=== PATIENT | male | born 1960 | race Caucasian/White ===

== ENCOUNTER 2018-04-04 12:26 | Inpatient (IN) ==
[2018-04-04] MEDS ORDERED: CeFAZolin Syr 2,000MG/20 ML 2,000 MG/20 ML SYRINGE IVPB ONE (12:54)
[2018-04-04] MEDS ORDERED: Ringers Solution, Lactated 1,000 ML IVC SCH ×2 (13:00→20:12)
[2018-04-04] MEDS ORDERED: Albuterol 2.5 MG/3 ML NEBULIZER ONE (13:10)
--- NOTE | 2018-04-04 13:17 | History & Physical Report ---
Date of Encounter: 04/04/18 Time of Encounter: 13:16 24 Hour HP Update - Instructions Instructions: If the History and Physical is less than 30 days old and was completed prior to A.M. admission and or procedure and has NOT been updated on calendar day of procedure please complete this update prior to performing procedure. - Update Patient reports changes in Medical Condition: No Changes in examination, assessment, or condition: No Changes in Medication: No Preop tests/diagnostics Reviewed: Yes Surgery Remains Indicated: Yes Consent for Planned Operative Procedure(s) Verified: Yes - Pre-Operative Checklist Preoperative Checklist Indicated: No Prophylactic Antibiotic Ordered: Yes Is VTE Prophylaxis Indicated?: Yes
--- NOTE | 2018-04-04 13:17 | Discharge Summary ---
<Mack Trinh - Last Filed: 04/04/18 14:56> Date of Encounter: 04/04/18 - Discharge Diagnosis (1) Arthritis of right hip Priority: Primary Status: Chronic (2) Status post total hip replacement, right Priority: Primary Status: Acute (3) Hypertension Priority: Secondary Status: Chronic Qualifiers: Hypertension type: unspecified Qualified Code(s): I10 - Essential (primary ) hypertension (4) Hyperlipidemia Priority: Secondary Status: Chronic Qualifiers: Hyperlipidemia type: unspecified Qualified Code(s): E78.5 - Hyperlipidemia , unspecified (5) COPD (chronic obstructive pulmonary disease) Priority: Secondary Status: Chronic Qualifiers: COPD type: unspecified COPD Qualified Code(s): J44.9 - Chronic obstructive pulmonary disease, unspecified (6) Tobacco use Priority: Secondary Status: Chronic (7) CVA (cerebral vascular accident) Priority: Secondary Status: Chronic Qualifiers: CVA mechanism: unspecified Qualified Code(s): I63.9 - Cerebral infarction, unspecified - Hospital Course Hospital course: Mr. Dexter is a 57 year old male - Time Spent with Patient Total time spent providing and/or coordinating discharge services: - Discharge Medications Home Medications: ALPRAZolam [Xanax 0.5 MG Tablet] 0.5 mg DAILY 04/04/18 [History] Cholecalciferol (Vitamin D3) [Vitamin D3] 5,000 units DAILY 04/04/18 [History] Clopidogrel [Plavix] 75 mg PO DAILY 04/04/18 [History] Sildenafil Citrate [Viagra] 50 mg PO DAILY 04/04/18 [History] Zolpidem [Ambien] 5 mg DAILY 04/04/18 [History] Allergies/Adverse Reactions: 3 Allergy/AdvReac Type Severity Reaction Status Date / Time No Known Allergies Allergy Verified 04/04/18 13:28 Primary care physician: Christian Berry MD - Patient Status Disposition: Home Health Service Condition: Good - Discharge Instructions Follow Up With: Christian Berry MD [Primary Care Provider] - Mack Trinh MD [Partnered Physician] - 05/01/18 5:20 pm Olivia Linder PAC [Physician Wet Trimmer] - 04/11/18 2:00 pm (also, 04/19/18 @ 10am ) Additional Instructions: Discharge Instructions: Total Hip Replacement Please call [facility] ([phone]), your Primary Care Physician, or report to the Emergency Room if you have any of the following symptoms: Nausea, vomiting, fever greater that 101.5, swelling, chest pain, shortness of breath, increased pain/redness/drainage/odor for your incision site, numbness/ tingling, or any other concerning symptoms. ACTIVITY:Weight-bearing as tolerated for 8 weeks with hip dislocation precautions that physical therapy taught you. You may progress as tolerated under the guidance of your physical therapist. You do not need to sleep with a pillow between your legs. You can also seep on the operative side or on your stomach. Incentive Spirometer 10 times an hour. MEDICATIONS: Upon discharge resume your home medications. Take all the medications as prescribed. Take a stool softener if taking narcotic pain medications. Stool softeners are only effective if you drink enough fluids. Drink 6-8 glass of water or fluids a day, unless this is not allowed for another health problem. Despite using stool softeners, if you haven't had a bowel movement in 3 days, please switch to a gentle laxative. Gentle laxatives are sold over the counter. You should have a bowel movement within 24 hours, if not call the office. You will be discharged from the hospital with a prescription for pain medication. You are encouraged to decrease the use of narcotic pain medication as tolerated. Should you require a refill, please call the office. [facility] prescribes narcotic pain medication for only 4-6 weeks after surgery. If you require pain medication beyond this time period, you may be referred to your Primary Care Physician or to the Pain Clinic for further evaluation. Plan ahead for refills on pain medication as many narcotics either need to be picked up at the office or mailed. It is best to call 48-72 hours in advance of needing a prescription refill so you don't run out of medication. To help control the post-operative pain, you may take NSAIDs (Aleve,Advil, Motrin, ibuprofen, naprosyn) or Tylenol as prescribed on the bottle in addition to the pain medication. ANTICOAGULATION (blood thinners): Continue your Aspirin, Lovenox or Coumadin as prescribed to help prevent a blood clot in the leg or in the lungs. As long as your incision remains dry and you tolerate the NSAIDs (Aleve, Advil, Motrin, Ibuprofen, Naprosyn), it is OK to use the NSAIDS while you are taking your anticoagulation medication. Should your incision start to drain, stop the NSAID and contact our office. Common symptoms of blood clot in the legs include: localized pain, swelling, calf tenderness, redness or discoloration of the skin. Blood clot in the lung symptoms include: shortness of breath, rapid pulse, sweating, and chest pain that worsens with deep breathing, coughing up blood, lightheadedness, feelings of anxiety. If you experience any of these symptoms notify your physician immediately, go to the emergency room, or if having trouble breathing, call 911. WOUND CARE: Leave the dressing on for 7 to 10days. You may change the dressing if it is saturated greater than 50%. Do not get the dressing wet at anytime. Wash your hands with antibacterial soap, rinse and dry prior to any wound care. If you have huber the visiting nurse or rehab facility can remove the stapes 10-14 days after surgery and place steri-strips across the wound. Leave the steri-strips in place until they fall off on their own. You may let water from the shower run on top of the steri-strips. If you do not have a visiting nurse or rehab facility, you will need to return to the office at 10-14 days for the huber to be removed. If you have itching or redness around the dressing call the office. FOLLOW-UP: Please follow up with your surgeon in the orthopedic clinic in 6 weeks from the day of surgery. If you have huber that need to be removed, you will need to come back to the office in 10-14 days from the day of surgery. <Domonique Cortez - Last Filed: 04/08/18 08:21> - NOTES TO OUTPATIENT PROVIDER Notes to Outpatient Provider: Need to recheck H/H outpatient Orders not resulted at time of discharge: Pending orders 04/04/18 13:24 US anesthesia pain block [US] Routine 04/05/18 07:56 Surgical Pathology [PTH] Routine Date of Encounter: 04/08/18 Time of Encounter: 08:14 - Discharge Diagnosis (1) Status post total hip replacement, right Priority: Primary Status: Acute (2) Arthritis of right hip Priority: Primary Status: Chronic (3) COPD (chronic obstructive pulmonary disease) Priority: Secondary Status: Chronic Qualifiers: COPD type: unspecified COPD Qualified Code(s): J44.9 - Chronic obstructive pulmonary disease, unspecified (4) CVA (cerebral vascular accident) Priority: Secondary Status: Chronic Qualifiers: CVA mechanism: unspecified Qualified Code(s): I63.9 - Cerebral infarction, unspecified (5) Hyperlipidemia Priority: Secondary Status: Chronic Qualifiers: Hyperlipidemia type: unspecified Qualified Code(s): E78.5 - Hyperlipidemia , unspecified (6) Hypertension Priority: Secondary Status: Chronic Qualifiers: Hypertension type: unspecified Qualified Code(s): I10 - Essential (primary ) hypertension (7) Tobacco use Priority: Secondary Status: Chronic - Hospital Course Hospital course: Mr. Dexter is a 57 year old male status post right THR robotic 04/04/18 with history of COPD, CVA, HTN, HLD, tobacco use. He participated in therapy and had uneventful hospital course. He was stable for discharge on 04/06/18 to home with home health services. Day of discharge H/H 12.7/35.6 which is decreased from 14.6/40.6 the day before - will have home health recheck H/H - Time Spent with Patient Total time spent providing and/or coordinating discharge services: Date of admission: 04/04/18 19:26 Primary care physician: Christian Berry MD Consults: 04/04/18 20:12 Consult to Nurse Navigator [CONS] Routine Comment: ortho navigator Consult to Occupational Therapy [CONS] Routine Comment: Evaluate, develop and implement POC Reason for Consult: total hip replacement Does patient have active BEDREST order?: No Is patient medically & hemodynamically stable?: Yes Consult to Physical Therapy [CONS] Routine Comment: Evaluate, develop and implement POC Reason for Consult: total hip replacement Does patient have active BEDREST order?: No Is patient medically & hemodynamically stable?: Yes Consult to Engineer Booster And Exhauster [CONS] Routine Reason for SW Consult: post op joint replacement RT Post Op Consult [CONS] Routine Discharging clinician: Mack Trinh Anticipated date of discharge: 04/06/18 - Impressions ITS Impressions Hip X-Ray 04/04/18 13:17 IMPRESSION: Status post right hip arthroplasty. No evidence of acute postoperative complication. D/ / 04/04/2018 17:05:26 Thony Richardson MD / leonardo Interpreting Provider: Thony Richardson MD - Patient Status Functional capacity at discharge: uses cane/walker Overall status at discharge: patient is back to baseline - Diet and Activity Activity: as per physical therapy Diet: advance to your usual diet
[2018-04-04] MEDS ORDERED: Albuterol 2.5 MG/3 ML NEBULIZER IH ONE (13:19)
[2018-04-04] MEDS ORDERED: Acetaminophen IV 1,000 MG/100 ML INFUS..BTL IVPB ONE (13:23)
[2018-04-04] MEDS ORDERED: Famotidine 20 MG/2 ML VIAL IVP ONE (13:23)
[2018-04-04] MEDS ORDERED: Celecoxib 100 MG CAPSULE PO ONE (13:24)
[2018-04-04] MEDS ORDERED: Pregabalin 75 MG CAPSULE PO ONE (13:24)
--- NOTE | 2018-04-04 13:54 | Anesthesia Evaluation PreOp ---
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 04/04/18 [Rx] Cholecalciferol (Vitamin D3) [Vitamin D3] 5,000 units DAILY 04/04/18 [History] Clopidogrel [Plavix] 75 mg PO DAILY 04/04/18 [History] OxyCODONE Immed Rel [Roxicodone 5 MG] 5 mg PO Q4HR PRN 5 Days #20 tablet [Rx] Sildenafil Citrate [Viagra] 50 mg PO DAILY 04/04/18 [History] Zolpidem [Ambien] 5 mg DAILY 04/04/18 [History] 3 Allergy/AdvReac Type Severity Reaction Status Date / Time No Known Allergies Allergy Verified 04/04/18 13:28 - Meds/Allergy Pre-op Review Medications Reviewed: Yes Allergies Reviewed: Yes Beta Blockers on Current Med List: No Anesthesia Results - Labs Laboratory Tests 03/22/18 03/22/18 14:05 14:05 Hgb 15.7 Hct 45.6 Plt Count 153 Sodium 140 Potassium 4.4 BUN 11 Creatinine 0.79 Anesthesia Exam O2 Sat Height 1.8 m Height 1.8 m Weight 77.111 kg Weight 77.111 kg O2 Sat by Pulse Oximetry 100 Vital Signs Temp Pulse Resp BP Pulse Ox 98.2 F 80 18 118/77 100 04/04/18 12:56 04/04/18 12:56 04/04/18 12:56 04/04/18 12:56 04/04/18 12:56 Height: 5'11 Weight: 170 lbs NPO (# of Hours): MN Pain Scale: 0 - HEENT Pupil (Motor): Pupils equal, EOMI Mallampati: III Teeth: Missing Oral Opening: Less than or equal to 3 - POLYMER SCIENTIST LOC: Oriented POLYMER SCIENTIST Motor: Normal RUE, Normal LUE, Normal RLE, Normal LLE, Normal Face POLYMER SCIENTIST Sensory: Normal: RUE, LUE, RLE, LLE, Face - Cardiac Rhythm: Regular Murmur: None JVD: No Carotid Bruit: No - Pulmonary Breath Sounds: bilateral Clear Respiratory Effort: Symmetrical Anesthesia Assess/Plan ASA Score: 3 (HTN Tobacco COPD CVA) Modified Francisco Scale for Level of Consciousness: Cooperative, oriented, and tranquil Anesthetic Plan: General, Regional Monitoring Plan: Standard Monitors Recovery Plan: PACU (Discussed GA, Fascia Iliaca Block agrees to proceed)
[2018-04-04] MEDS ORDERED: Ondansetron 4 MG/2 ML VIAL ONE ×2 (13:57→15:22)
[2018-04-04] MEDS ORDERED: Lidocaine -MPF 2% 2 ML VIAL ONE (13:57)
[2018-04-04] MEDS ORDERED: *HR* Succinylcholine 200 MG/10 ML VIAL IVP ONE ×2 (13:57→14:51)
[2018-04-04] MEDS ORDERED: *HR* Midazolam HCl 2 MG/2 ML VIAL ONE (13:58)
[2018-04-04] MEDS ORDERED: *HR* FentaNYL (PF) 100 MCG/2 ML VIAL ONE ×3 (13:58→15:34)
[2018-04-04] MEDS ORDERED: *HR* Propofol 200 MG/20 ML VIAL IVP ONE ×2 (13:58→14:31)
[2018-04-04] MEDS ORDERED: Dexamethasone 4 MG/ML VIAL ONE ×2 (13:59→15:22)
[2018-04-04] MEDS ORDERED: ROPIVACAINE HCL/PF 0.5% 30 ML VIAL ONE (14:01)
[2018-04-04] MEDS ORDERED: Lidocaine -MPF 4% 5 ML AMPUL ONE ×2 (14:03→14:38)
[2018-04-04] MEDS ORDERED: *HR* Labetalol 20 MG/4 ML SYRINGE IVP PRN (14:05)
[2018-04-04] MEDS ORDERED: *HR* OxyCODONE Immed Rel 5 MG TABLET PO PRN (14:05)
[2018-04-04] MEDS ORDERED: *HR* Promethazine 25 MG/ML VIAL IVP PRN (14:05)
[2018-04-04] MEDS ORDERED: Ethanol\\Acetic Acid\\Na Ace\\Ben 1,000 ML IRRIG.SOLN IR ONE (14:33)
[2018-04-04] MEDS ORDERED: Ketorolac 30 MG/ML VIAL ONE (15:22)
--- NOTE | 2018-04-04 16:19 | Orthopedic Operative Note ---
Date of procedure: 04/04/18 Pre-op diagnosis: Right hip arthritis Post-op diagnosis: same Procedure: Procedure: Right Total Hip Replacment robotic-assisted Estimated blood loss: 200 cc Hardware: Metal and polyethylene replacement. [place] DM Cup: 60 cup Femoral size 9 stem Head: -4 head with Rachelle Procedural Notes: Grade 4 arthritic changes femoral head acetabular socket, procedure performed with robotic assistance. 2 mm longer operative side as measured by preoperative CT scan Operative procedure: The patient was brought to the operating room and placed on the operating room table. After general anesthesia was administered the patient was placed in the lateral decubitus position with the operative leg up. All pressure points were padded appropriately and the head was stabilized in the neutral position. The operative extremity was prepped and draped in the sterile surgical fashion patient received IV antibiotic prior to skin incision. 3 Steinmann pins were placed in the iliac crest 3 cm proximal to the anterior superior iliac spine this was for the robotic-assisted sensor. This was done through a small 2 cm incision. A standard posterior approach is made to the operative hip, the incision was made through the skin and subcutaneous tissue hemostasis was obtained with Bovie cautery. Using careful sharp dissection the fascia was identified and incised exposing the external rotators. Leg length was measured at this time utilizing robotic assistance. The external rotators were released off the greater trochanter and tagged with #2 FiberWire suture. The capsule was T'd open and the hip was brought into internal rotation. Patient noted to have grade 4 arthritic changes femoral head. The femoral neck cut was made at the appropriate level roughly Xmm proximal to the lesser trochanter aced on preoperative templating. An anterior capsulotomy was performed for the anterior retractor. Soft tissues removed from the acetabulum. Patient noted to have grade 4 arthritic changes acetabulum. The acetabulum was then mapped with robotic assistance. Based on the preoperative plan the acetabulum was reamed in one step with a 59 reamer. The 60 acetabulum was impacted with robotic assistance and 38 degrees of abduction and 21 degrees of anteversion. The hip was brought back in to internal rotation and prepared with the box car loader followed by the canal finder followed by the reaming process to a size 9/ 10 broaching process in 20 degrees anteversion. It was broached up to the appropriate size 9. Trial reduction revealed leg lengths close to normal. The femoral implant was impacted in place in 20 degrees of anteversion. Trial reduction found the hip to be stable with -4 head and Rachelle. The trials were removed and the real implants were impacted in place. The hip was reduced, patient had robotic confirmed leg length of 3 mm longer than the contralateral side. The hip had excellent stability with forward flexion to 90 degrees adduction of 30 degrees and internal rotation of 60 degrees. The hip had no shuck. The hip was soaked with an antibacterial solution. It was irrigated out with 2 L of pulse irrigation. The checkpoints were removed, Steinmann pins were removed. The hip was closed by the PA. The deep tissue was irrigated and closed deep with #1 PDS suture superficially with 0 PDS suture and skin was closed with Dermabond and zip tie. The patient was placed in a sterile dressing and abduction pillow. The patient was extubated and transferred to the recovery room in stable condition. Anesthesia: CARLAA Surgeon: Mack Trinh Was there an research lab assistant present: No Estimated blood loss (cc): 200 Condition: stable Disposition: PACU
[2018-04-04] MEDS: *HR* HYDROmorphone (PF) 1 MG/ML SYRINGE IVP PRN ×4 (16:40→16:55)
--- NOTE | 2018-04-04 16:42 | Anesthesia Procedures ---
Date of Encounter: 04/04/18 Time of Encounter: 14:30 Procedures: Anesthesia - Nerve Block Procedure Date: 04/04/18 Time: 14:30 Allergies/Adv Reactions: NKA Pre-op Diagnosis: right hip arthritis Surgical Procedure: right SAILAJA Checklist: Correct Patient Identifier Correct side: Right Blood Thinner: No Monitor Applied: EKG, BP, Pulse Oximetry Supplemental Oxygen via Nasal Cannula (L/min): 2 Sedation: Versed (mg): 2 Sedation: Fentanyl (mcg): 100 Indication: Post Op Analgesia Pre-op Neuro Deficits: No Block Type: Other (fascia illiaca) Catheter placed: No Sterile Technique: Yes Ultrasound used: Yes Anatomy identified: Yes Visual spread of Local: Yes Blood on Needle Aspiration: No Smooth Injection of Local: Yes Pain with Injection of Local: No Prep: Chlorhexadine Needle: 22 x 50 mm Stimuplex Local: Ropivacaine Volume (cc): 60ml 0.25% ropi, decadron Number of Attempts: 1 Complications: None/effective block Vitals: see nurses notes
--- NOTE | 2018-04-04 17:04 | Anesthesia Evaluation Post Op ---
Date of Encounter: 04/04/18 Time of Encounter: 17:02 - Vital Signs Vital Signs: Last Vital Signs Temp 98.5 F 04/04/18 16:52 Pulse 70 04/04/18 16:52 Resp 16 04/04/18 16:52 BP 104/86 04/04/18 16:52 Pulse Ox 98 04/04/18 16:52 - Lungs Lungs: Clear Ascult./Percussion - Airway Airway: Non-obstructed - Cardiovascular Regular Rate - Mental Status Mental Status: Alert & Oriented, Answers Appropriately - Pain Pain Scale: 0 Pain Scale used: [place] (Faces) - Nausea Vomiting Nausea Vomiting: Not Present - Hydration Hydration: Ice chips, Has not voided - Discharge PostOp Status: Transfer Patient to floor
[2018-04-04 17:13] LABS: Hematocrit 45.2 % (37.5-50.1); Hemoglobin 15.8 g/dL (12.9-16.9)
[2018-04-04] MEDS ORDERED: *HR* Enoxaparin 30 MG/0.3 ML SYRINGE SQ SCH (18:00)
[2018-04-04] MEDS ORDERED: Ondansetron 4 MG/2 ML VIAL IVP PRN (20:12)
[2018-04-04] MEDS ORDERED: Sennosides 8.6 MG TABLET PO PRN (20:12)
[2018-04-04] MEDS ORDERED: Naloxone 0.4 MG/ML INJ IVP PRN (20:12)
[2018-04-04] MEDS ORDERED: traMADol 50 MG TABLET PO PRN (20:12)
[2018-04-04] MEDS ORDERED: MOM Conc 10 ML UD.LIQ PO PRN (20:12)
[2018-04-04] MEDS ORDERED: Temazepam 15 MG CAPSULE PO PRN (20:12)
[2018-04-04] MEDS: *HR* OxyCODONE/APAP 5/325 TABLET PO PRN (21:31)
[2018-04-04] MEDS: Ascorbic Acid 500 MG TABLET PO SCH (21:31)
[2018-04-05 01:37] LABS: Hematocrit 40.6 % (37.5-50.1); Hemoglobin 14.6 g/dL (12.9-16.9)
[2018-04-05 02:01] LABS: BUN/Creatinine Ratio 16 (6-26); Blood Urea Nitrogen 14 mg/dL (6-20); Calcium 8.9 mg/dL (8.6-10.3); Carbon Dioxide 25 mEq/L (23-29); Chloride 104 mEq/L (98-107); Glucose 173 mg/dL (70-105); Osmolality,Calculated 287 (280-300); Potassium 4.6 mEq/L (3.5-5.1); Sodium 136 mEq/L (136-145); eGFR For Non-African Americans > 60 (> 60)
[2018-04-05] MEDS: *HR* OxyCODONE Immed Rel 5 MG TABLET PO PRN ×3 (03:48→17:44)
[2018-04-05] MEDS: *HR* Enoxaparin 30 MG/0.3 ML SYRINGE SQ SCH ×2 (06:11→17:45)
[2018-04-05] MEDS: *HR* OxyCODONE/APAP 5/325 TABLET PO PRN ×3 (06:19→20:43)
[2018-04-05] MEDS: Multivit/Ca/Min/Fe/FA 1 TAB TABLET PO SCH (08:19)
[2018-04-05] MEDS: Ascorbic Acid 500 MG TABLET PO SCH ×2 (08:20→17:44)
--- NOTE | 2018-04-05 08:26 | Orthopedics Progress Note ---
Date of Encounter: 04/05/18 Time of Encounter: 08:25 - Assessment and Plan (1) Arthritis of right hip Current Visit: Yes Status: Chronic (2) Status post total hip replacement, right Current Visit: Yes Status: Acute (3) Hypertension Current Visit: Yes Status: Chronic Qualifiers: Hypertension type: unspecified Qualified Code(s): I10 - Essential (primary ) hypertension (4) Hyperlipidemia Current Visit: Yes Status: Chronic Qualifiers: Hyperlipidemia type: unspecified Qualified Code(s): E78.5 - Hyperlipidemia , unspecified (5) COPD (chronic obstructive pulmonary disease) Current Visit: Yes Status: Chronic Qualifiers: COPD type: unspecified COPD Qualified Code(s): J44.9 - Chronic obstructive pulmonary disease, unspecified (6) Tobacco use Current Visit: Yes Status: Chronic (7) CVA (cerebral vascular accident) Current Visit: Yes Status: Chronic Qualifiers: CVA mechanism: unspecified Qualified Code(s): I63.9 - Cerebral infarction, unspecified Subjective Interval history: Patient was seen this morning doing well without complaints. Afebrile vital signs stable. Operative extremity: Neurovascularly intact Dressing clean dry and intact Calves nontender Assessment and plan: Continue with postoperative care Objective Vital signs: Vital Signs Temp Pulse Resp BP Pulse Ox 04/05/18 06:59 98.6 F 86 18 117/55 96 04/05/18 04:09 97.8 F 70 17 128/74 97 04/04/18 23:00 97.8 F 74 17 138/84 98 04/04/18 22:50 97.9 F 76 17 132/80 98 04/04/18 22:00 97.7 F 71 17 140/84 98 04/04/18 21:00 97.8 F 70 18 141/80 98 04/04/18 20:30 97.5 F L 71 17 150/83 98 04/04/18 20:00 97.8 F 74 17 153/82 98 04/04/18 19:48 75 12 131/67 97 04/04/18 19:22 97.2 F L 75 12 130/80 97 04/04/18 19:12 69 10 127/71 94 04/04/18 19:02 80 12 157/88 97 04/04/18 18:52 97.6 F 81 12 148/89 98 04/04/18 18:42 80 12 143/88 99 04/04/18 18:32 71 12 131/72 96 04/04/18 18:22 98.2 F 83 12 129/81 98 04/04/18 18:12 78 12 134/78 96 04/04/18 18:02 90 12 151/76 97 04/04/18 17:52 98.2 F 80 12 149/75 97 04/04/18 17:42 91 8 158/81 99 04/04/18 17:32 84 8 157/86 98 04/04/18 17:22 98 F 76 6 147/81 97 04/04/18 17:12 70 5 153/81 98 04/04/18 17:02 80 16 161/82 100 04/04/18 16:52 98.5 F 70 16 104/86 98 04/04/18 16:42 69 16 154/92 94 04/04/18 16:32 76 16 164/89 96 04/04/18 16:22 97.6 F 66 16 120/75 99 04/04/18 14:34 75 16 121/69 98 04/04/18 14:23 75 16 123/78 95 04/04/18 12:56 98.2 F 80 18 118/77 100 Intake and Output 04/04/18 04/05/18 04/05/18 23:59 07:59 15:59 Intake Total 220 / 220 300 / 300 Output Total 300 / 300 1550 / 1550 Balance -80 / -80 -1250 / -1250 Intake: IV Fluids 100 / 100 Ancef 2,000 MG In 0.9 % Sodium 100 / 100 Chloride 100 ML @ 200 mls/hr IVPB Q8H [facility] Rx#:[id number] Oral 120 / 120 300 / 300 Output: Urine 1550 / 1550 Estimated Blood Loss 300 / 300 - Labs CBC & BMP: 04/05/18 01:26 04/05/18 01:26 Labs: Abnormal lab results Glucose 173 mg/dL (70-105) H 04/05/18 01:26 Consult Discharge Plan - Plan Referrals: Christian Berry MD [Primary Care Provider] -
[2018-04-05] MEDS: ALPRAZolam 0.5 MG TABLET PO SCH (08:33)
--- NOTE | 2018-04-05 08:34 | Physician Discharge Referral ---
Home Health/Hosp Referral Info Transfer to: Home Health Attending Provider: Ziggy - Diagnosis (1) Status post total hip replacement, right Priority: Primary Status: Acute (2) Arthritis of right hip Priority: Secondary Status: Chronic (3) COPD (chronic obstructive pulmonary disease) Priority: Secondary Status: Chronic (4) CVA (cerebral vascular accident) Priority: Secondary Status: Chronic (5) Hyperlipidemia Priority: Secondary Status: Chronic (6) Hypertension Priority: Secondary Status: Chronic (7) Tobacco use Priority: Secondary Status: Chronic - Respiratory Orders Smoking Cessation: Smoking cessation has been advised. For more information, call the [place] Tobacco Quit Line at 5-991-CGSL-NOW. - Diet/Nutrition Diet/Nutrition Orders: Regular - Activity Activity Orders: Ambulate, Chair - Services Needed Following services are medically necessary services: Nursing, Home Health Aide, Physical Therapy, Occupational Therapy Other Treatments: Opsite dressing, leave intact until first post-operative visit. If dressing becomes >50% saturated, contact office, remove dressing and place appropriate dressing in its place. Do not allow for dressing to get wet. Zipline/[place] in place, plan to remove at post-operative day #14-16. Total Joint Precautions x 6 weeks Apply cold therapy wrap 3-6x/day for 20 minutes at a time. Encourage ambulation throughout the day Use Incentive spirometer 10x/hour. Elevate affected extremity above heart as tolerated. Brace: Wear hip abductor brace at night x 6 weeks. - Transfer Medications Home Medications: ALPRAZolam [Xanax 0.5 MG Tablet] 0.5 mg DAILY 04/04/18 [History] Cholecalciferol (Vitamin D3) [Vitamin D3] 5,000 units DAILY 04/04/18 [History] Clopidogrel [Plavix] 75 mg PO DAILY 04/04/18 [History] Sildenafil Citrate [Viagra] 50 mg PO DAILY 04/04/18 [History] Zolpidem [Ambien] 5 mg DAILY 04/04/18 [History] Allergies/Adverse Reactions: 3 Allergy/AdvReac Type Severity Reaction Status Date / Time No Known Allergies Allergy Verified 04/04/18 13:28 Certification: Further, I certify that my clinical findings support that this patient is homebound (i.e. absences from home require considerable and taxing effort and are for medical reasons or anglican services or infrequently or short duration when for other reasons) because: Homebound Reason: Post-surgery restriction and or conditions limit ability to leave home Attestation: My signature below is to certify that this patient is under my care and that I, or nurse practitioner, or a physician program support assistant working with me, has a face-to- face encounter with this patient.
--- NOTE | 2018-04-05 17:51 | Event Note ---
Date of Encounter: 04/05/18 Time of Encounter: 12:30 PCR - POD#1 s/p right THR robotic 04/04/18 Patient seen at bedside, without complaints. A&O x 3 Afebrile, vital signs stable. dressings clean, dry, and intact with no visible drainage or surrounding erythema. no calf tenderness to palpation. good dorsiflexion of foot. grossly NV intact. Labs reviewed. H/H 14.6/40.6 - stable, asymptomatic Pain control: adequate Participating in PT. All questions and concerns addressed. Educated on use of incentive spirometer. Encouraged ambulation and proper hydration. Patient educated on post-operative restrictions and post-operative care. Assessment and plan: Continue with postoperative care Discharge plan: Home with home health tomorrow
[2018-04-06 00:46] LABS: Hematocrit 35.6 % (37.5-50.1); Hemoglobin 12.7 g/dL (12.9-16.9)
[2018-04-06 01:12] LABS: BUN/Creatinine Ratio 20 (6-26); Blood Urea Nitrogen 16 mg/dL (6-20); Calcium 8.7 mg/dL (8.6-10.3); Carbon Dioxide 30 mEq/L (23-29); Chloride 104 mEq/L (98-107); Glucose 114 mg/dL (70-105); Osmolality,Calculated 290 (280-300); Sodium 139 mEq/L (136-145); eGFR For Non-African Americans > 60 (> 60)
[2018-04-06] MEDS: *HR* OxyCODONE/APAP 5/325 TABLET PO PRN ×3 (02:29→10:25)
[2018-04-06] MEDS: *HR* Enoxaparin 30 MG/0.3 ML SYRINGE SQ SCH (05:54)
[2018-04-06] MEDS: Multivit/Ca/Min/Fe/FA 1 TAB TABLET PO SCH (09:02)
[2018-04-06] MEDS: ALPRAZolam 0.5 MG TABLET PO SCH (09:02)
[2018-04-06] MEDS: Ascorbic Acid 500 MG TABLET PO SCH (09:03)
[2018-04-06 11:35] VITALS: BP 131/75
== END 2018-04-06 11:48 | disposition home health service (06) | DRG 470 ==
LOC: SAMDAY 12:26 → 3NENU 19:26
PROVIDERS: ADMIT Orthopaedic Surgery; ATTEND Orthopaedic Surgery